=== PATIENT | female | born 1970 | race Caucasian/White ===

== ENCOUNTER 2017-10-23 19:42 | Emergency (ER) | payer SELFPAY ==
[~2017-10-23] VITALS: Ht 157.5 cm; Wt 59.4 kg
[2017-10-23 20:59] VITALS: BP 148/78
== END 2017-10-23 21:00 | disposition home or self-care (01) ==
LOC: FSED 19:42
DX: R09.89 Other specified symptoms and signs involving the circulatory and respiratory systems (principal); E06.3 Autoimmune thyroiditis
CPT/HCPCS: 70360; 71046; 99282